=== PATIENT | female | born 1985 | race Two or more races ===

== ENCOUNTER 2025-11-02 08:57 | Emergency (ER) | payer OTHER ==
[~2025-11-02] VITALS: Ht 165.1 cm; Wt 81.4 kg
[2025-11-02 10:46] VITALS: BP 123/79; TEMP 98.8; O2SAT 99
== END 2025-11-02 10:49 | disposition home or self-care (01) ==
LOC: M ED 08:57
DX: R50.9 Fever, unspecified (principal); B34.9 Viral infection, unspecified; Z88.8 Allergy status to other drugs, medicaments and biological substances